=== PATIENT | male | born 1945 | race Caucasian/White ===

== ENCOUNTER 2022-04-04 05:00 | Outpatient (CLI) | payer OTHER, MEDICARE ==
[~2022-04-04] VITALS: Ht 185.4 cm; Wt 127.0 kg
[~2022-04-04 05:00] MED LIST: ASPI-1457 PO; LIP10 PO; LOSA1TAB3 PO
[2022-04-04 11:38] LABS: BASOPHILS % (AUTO) 0.4 % (0.0-2.0); EOSINOPHILS # (AUTO) 0.1 K/uL (0.0-0.4); EOSINOPHILS % (AUTO) 0.8 % (0.0-4.0); HEMATOCRIT 45.7 % (36-54); HEMOGLOBIN 15.7 g/dL (14.0-18.0); LYMPHOCYTES # (AUTO) 2.1 K/uL (1.0-5.5); LYMPHOCYTES % (AUTO) 28.5 % (20.5-51.5); MEAN CORPUSCULAR HEMOGLOBIN 33 pg (27-31); MEAN CORPUSCULAR HGB CONC 34 % (32-36); MEAN CORPUSCULAR VOLUME 96 fL (79.0-98.0); MONOCYTES # (AUTO) 0.9 K/uL (0.0-1.0); MONOCYTES % (AUTO) 12.4 % (1.7-9.3); NEUTROPHILS # (AUTO) 4.3 K/uL (1.8-7.7); NEUTROPHILS % (AUTO) 57.9 % (40.0-70.0); PLATELET COUNT (AUTO) 157 K/uL (130-430); RED BLOOD CELL COUNT(AUTO) 4.78 MIL/uL (4.2-6.2); RED CELL DISTRIBUTION WIDTH 13.4 % (9.0-15.0); WHITE BLOOD COUNT (AUTO) 7.4 K/uL (4.8-10.8)
[2022-04-04 11:43] LABS: BILIRUBIN,URINE NEGATIVE (NEGATIVE); BLOOD, URINE NEGATIVE (NEGATIVE); CLARITY/URINE CLEAR (CLEAR); COLOR,URINE YELLOW (YELLOW); GLUCOSE,URINE NEGATIVE (NEGATIVE); KETONES,URINE NEGATIVE (NEGATIVE); LEUKOCYTE ESTERASE ,URINE NEGATIVE (NEGATIVE); NITRITE, URINE NEGATIVE (NEGATIVE); PROTEIN URINE NEGATIVE (NEGATIVE); UROBILINOGEN,URINE 0.2 (0.2-1.0)
[2022-04-04 12:16] LABS: ANION GAP 8 (5-15); CALCIUM 9.7 mg/dL (8.4-11.0); CHLORIDE 100 mmol/L (98-107); GLUCOSE 134 mg/dL (70-99); UREA NITROGEN, BLOOD 21 mg/dL (8-21)
[2022-04-04 12:18] LABS: PROTHROMBIN TIME 10.2 SECS (9.5-12.5)
[2022-04-08] MEDS ORDERED: ASPI-1393 PO (05:32)
[2022-04-08] MEDS ORDERED: LOSA1TAB40 PO (05:32)
[2022-04-08] MEDS ORDERED: AMLO2.5T2 PO (05:32)
[2022-04-08] MEDS ORDERED: ROSU40TA PO (05:32)
== END 2022-04-04 16:00 | disposition home or self-care (01) ==
LOC: SLB 05:00 → UNDOADMIN 04-08 05:00 → SMU 04-08 05:00 → EDSTATUS 04-08 07:30
PROVIDERS: ATTEND Student in an Organized Health Care Education/Training Program
DX: Z01.812 Encounter for preprocedural laboratory examination (principal); M16.12 Unilateral primary osteoarthritis, left hip; Z20.822 Contact with and (suspected) exposure to COVID-19
CPT/HCPCS: 80048; 85025; 87081; 85730; 85610; 36415; 81003; U0003; Q9967

== ENCOUNTER 2022-06-10 04:55 | Inpatient (IN) | payer OTHER, MEDICARE ==
[2022-06-04 11:33] LABS: BILIRUBIN,URINE NEGATIVE (NEGATIVE); BLOOD, URINE NEGATIVE (NEGATIVE); CLARITY/URINE CLEAR (CLEAR); COLOR,URINE YELLOW (YELLOW); GLUCOSE,URINE NEGATIVE (NEGATIVE); KETONES,URINE NEGATIVE (NEGATIVE); LEUKOCYTE ESTERASE ,URINE NEGATIVE (NEGATIVE); NITRITE, URINE NEGATIVE (NEGATIVE); PH,URINE 6.5 (5.0-8.0); PROTEIN URINE TRACE (NEGATIVE); UROBILINOGEN,URINE 0.2 (0.2-1.0)
[2022-06-04 11:41] LABS: BASOPHILS % (AUTO) 0.6 % (0.0-2.0); EOSINOPHILS # (AUTO) 0.1 K/uL (0.0-0.4); EOSINOPHILS % (AUTO) 1.6 % (0.0-4.0); HEMATOCRIT 45.9 % (36-54); HEMOGLOBIN 15.7 g/dL (14.0-18.0); LYMPHOCYTES # (AUTO) 2.2 K/uL (1.0-5.5); LYMPHOCYTES % (AUTO) 27.6 % (20.5-51.5); MEAN CORPUSCULAR HEMOGLOBIN 33 pg (27-31); MEAN CORPUSCULAR HGB CONC 34 % (32-36); MEAN CORPUSCULAR VOLUME 95 fL (79.0-98.0); MONOCYTES # (AUTO) 0.9 K/uL (0.0-1.0); MONOCYTES % (AUTO) 11.4 % (1.7-9.3); NEUTROPHILS # (AUTO) 4.7 K/uL (1.8-7.7); NEUTROPHILS % (AUTO) 58.8 % (40.0-70.0); PLATELET COUNT (AUTO) 157 K/uL (130-430); RED BLOOD CELL COUNT(AUTO) 4.83 MIL/uL (4.2-6.2); RED CELL DISTRIBUTION WIDTH 13.2 % (9.0-15.0); WHITE BLOOD COUNT (AUTO) 7.9 K/uL (4.8-10.8)
[2022-06-04 11:48] LABS: ANION GAP 8 (5-15); CALCIUM 9.2 mg/dL (8.4-11.0); CHLORIDE 102 mmol/L (98-107); CREATININE 1.06 mg/dL (0.55-1.30); GLUCOSE 147 mg/dL (70-99); UREA NITROGEN, BLOOD 22 mg/dL (8-21)
[2022-06-04 11:54] LABS: PROTHROMBIN TIME 10.4 SECS (9.5-12.5)
[~2022-06-10] VITALS: Ht 185.4 cm; Wt 129.3 kg
[~2022-06-10 04:55] MED LIST changes: +AMLO2.5T2 PO; +ASPI-1393 PO; +LOSA1TAB40 PO; +ROSU40TA PO
[2022-06-10] MEDS ORDERED: CEFAZOLIN SOD 2 GM in D5W 50 ML IV ONE (07:00)
[2022-06-10] MEDS ORDERED: CEFAZOLIN 2 GM IVPB PREMIX 50 ML IV ONE (07:03)
[2022-06-10] MEDS ORDERED: ONDANSETRON HCL 4 MG/2 ML VIAL ONE (07:30)
[2022-06-10] MEDS ORDERED: MIDAZOLAM HCL 2 MG/2 ML VIAL (VERSED) ONE (07:30)
[2022-06-10] MEDS ORDERED: NS 1000 ML IV.SOLN IV ONE (07:30)
[2022-06-10] MEDS ORDERED: NS IRRIG SOLN 1000 ML IR ONE (07:30)
[2022-06-10] MEDS ORDERED: SUGAMMADEX SODIUM 200 MG/2 ML VIAL IV ONE (07:30)
[2022-06-10] MEDS ORDERED: BUPIVACAINE /PF 0.75% 10 ML VIAL INJ ONE (07:30)
[2022-06-10] MEDS ORDERED: VANCOMYCIN HCL 1000 MG/VIAL IV ONE (07:30)
[2022-06-10] MEDS ORDERED: BUPIVACAINE /PF 0.25% 30 ML VIAL INJ ONE (07:30)
[2022-06-10] MEDS ORDERED: PHENYLEPHRINE HCL 10 MG/ML VIAL (NEOSYNEPHRINE) ONE (07:30)
[2022-06-10] MEDS ORDERED: DEXAMETHASONE SOD PHOSPHATE 4 MG/ML VIAL ONE (07:30)
[2022-06-10] MEDS ORDERED: LIDOCAINE 1% 10 MG/ML, 20 ML MDV ONE (07:30)
[2022-06-10] MEDS ORDERED: MORPHINE SULFATE 10MG/10ML PF AMP ONE (07:30)
[2022-06-10] MEDS ORDERED: ROCURONIUM BROMIDE 10 MG/ML (ZEMURON) ONE (07:30)
[2022-06-10] MEDS ORDERED: BUPIVACAINE /EPINEPHRINE/PF 0.5% 30 ML VIAL INJ ONE (07:30)
[2022-06-10] MEDS ORDERED: DESFLURANE 15 MIN GAS INH ONE (07:30)
[2022-06-10] MEDS ORDERED: LR 1,000 ML IV.SOLN IV ONE (07:30)
[2022-06-10] MEDS ORDERED: TRANEXAMIC ACID 1,000 MG/10 ML VIAL ONE (07:30)
[2022-06-10] MEDS ORDERED: PROPOFOL 200MG/ 20ML VIAL (DIPRIVAN) IV ONE (07:30)
[2022-06-10] MEDS ORDERED: ePHEDrine sulfate 50 MG/ML VIAL ONE (07:30)
[2022-06-10] MEDS ORDERED: KETOROLAC TROMETHAMINE 30 MG VIAL ONE (07:30)
[2022-06-10] MEDS ORDERED: LIDOCAINE PF 2%, 40 MG/2 ML AMP INJ ONE (07:30)
[2022-06-10] MEDS ORDERED: HYDROmorphone 1 MG/ML INJ. CARTRIDGE IVP PRN ×5 (08:30→11:00)
[2022-06-10] MEDS ORDERED: LR 1,000 ML IV SCH (08:30)
[2022-06-10] MEDS ORDERED: METOCLOPRAMIDE HCL 10 MG/2 ML VIAL IVP PRN ×2 (08:30→12:00)
[2022-06-10] MEDS ORDERED: hydrALAZINE HCL 20 MG/ML VIAL IVP PRN (08:30)
[2022-06-10] MEDS ORDERED: MEPERIDINE HCL/PF 25 MG/ML DISP.SYRIN IVP PRN (08:30)
[2022-06-10] MEDS ORDERED: LABETALOL 100 MG/ 20ML VIAL IVP PRN (08:30)
[2022-06-10] MEDS ORDERED: ONDANSETRON HCL 4 MG/2 ML VIAL IVP PRN ×2 (08:45→11:45)
[2022-06-10] MEDS ORDERED: NALOXONE HCL 0.4 MG/ML AMP (NARCAN) IVP PRN ×4 (08:45→12:00)
[2022-06-10] MEDS ORDERED: DIPHENHYDRAMINE INJ 50 MG/ML VIAL IVP PRN (08:45)
[2022-06-10] MEDS ORDERED: ACETAMINOPHEN I.V. 1000 MG 100 ML IV ONE (08:50)
[2022-06-10] MEDS ORDERED: ROSU40TA PO (10:51)
[2022-06-10] MEDS ORDERED: LOSA1TAB43 PO (10:51)
[2022-06-10] MEDS ORDERED: AMLO2.5T2 PO (10:51)
[2022-06-10] MEDS ORDERED: ZEAX100P MC (10:51)
[2022-06-10] MEDS ORDERED: ASPI-1155 PO (10:51)
[2022-06-10] MEDS ORDERED: LORATADINE 10 MG TABLET PO PRN (11:00)
[2022-06-10] MEDS ORDERED: traMADol HCL HCL 50 MG TABLET (ULTRAM) PO PRN (11:00)
[2022-06-10] MEDS ORDERED: oxyCODONE HCL 5 MG TABLET PO PRN ×2 (11:00)
[2022-06-10] MEDS ORDERED: LACTULOSE 20 GM/30 ML UDC PO PRN (12:00)
[2022-06-10] MEDS ORDERED: BISACODYL 10 MG/SUPPOSITORY RC PRN (12:00)
[2022-06-10] MEDS ORDERED: DIPHENHYDRAMINE HCL 25 MG CAPSULE PO PRN (12:00)
[2022-06-10 12:46] VITALS: BP_SYST 116
[2022-06-10] MEDS: ACETAMINOPHEN 500 MG TABLET PO SCH ×2 (14:02→21:55)
[2022-06-10] MEDS: ceFAZolin SODIUM 2 GM in D5W 50 ML IV SCH ×2 (14:23→21:46)
[2022-06-10] MEDS: KETOROLAC TROMETHAMINE 10 MG TABLET (TORADOL) PO SCH ×2 (14:24→21:45)
[2022-06-10] MEDS: amLODIPine BESYLATE 5 MG TABLET PO SCH (15:56)
[2022-06-10] MEDS ORDERED: amLODIPine BESYLATE 5 MG TABLET PO ONE (16:00)
[2022-06-10] MEDS ORDERED: TAMSULOSIN HCL 0.4 MG CAP PO ONE (17:15)
[2022-06-10] MEDS: HYDROCHLOROTHIAZIDE 25 MG TABLET (HCTZ) PO SCH (17:37)
[2022-06-10] MEDS ORDERED: ATORVASTATIN 10 MG TABLET PO SCH (18:00)
[2022-06-10 20:05] VITALS: BP_SYST 118
[2022-06-10] MEDS: SENNOSIDES/DOCUSATE SODIUM 1 TAB TABLET(SENOKOT-S) PO SCH (21:47)
[2022-06-11 00:11] VITALS: BP_SYST 114
[2022-06-11] MEDS: ACETAMINOPHEN 500 MG TABLET PO SCH (05:18)
[2022-06-11] MEDS: KETOROLAC TROMETHAMINE 10 MG TABLET (TORADOL) PO SCH (05:19)
[2022-06-11] MEDS: ceFAZolin SODIUM 2 GM in D5W 50 ML IV SCH (05:20)
[2022-06-11] MEDS ORDERED: ACET-2634 PO ×2 (08:00→13:40)
[2022-06-11] MEDS ORDERED: CEPH250C PO (08:00)
[2022-06-11 08:14] VITALS: BP_SYST 126
[2022-06-11] MEDS: SENNOSIDES/DOCUSATE SODIUM 1 TAB TABLET(SENOKOT-S) PO SCH (08:25)
[2022-06-11] MEDS: amLODIPine BESYLATE 5 MG TABLET PO SCH (08:27)
[2022-06-11 08:34] LABS: HEMOGLOBIN 12.4 g/dL (14.0-18.0); LYMPHOCYTES # (AUTO) 1.9 K/uL (1.0-5.5); LYMPHOCYTES % (AUTO) 16.7 % (20.5-51.5); MEAN CORPUSCULAR HEMOGLOBIN 32 pg (27-31); MEAN CORPUSCULAR HGB CONC 33 % (32-36); MEAN CORPUSCULAR VOLUME 96 fL (79.0-98.0); MONOCYTES # (AUTO) 1.3 K/uL (0.0-1.0); MONOCYTES % (AUTO) 11.7 % (1.7-9.3); NEUTROPHILS # (AUTO) 8.3 K/uL (1.8-7.7); NEUTROPHILS % (AUTO) 71.6 % (40.0-70.0); PLATELET COUNT (AUTO) 147 K/uL (130-430); RED BLOOD CELL COUNT(AUTO) 3.85 MIL/uL (4.2-6.2); RED CELL DISTRIBUTION WIDTH 13.5 % (9.0-15.0); WHITE BLOOD COUNT (AUTO) 11.6 K/uL (4.8-10.8)
[2022-06-11 08:56] LABS: ALANINE AMINOTRANSFERASE 29 U/L (12-78); ALBUMIN 3.1 g/dL (3.4-4.8); ANION GAP 8 (5-15); ASPARTATE AMINOTRANSFERASE 34 U/L (10-37); CALCIUM 8.7 mg/dL (8.4-11.0); CHLORIDE 103 mmol/L (98-107); GLUCOSE 155 mg/dL (70-99); TOTAL BILIRUBIN 0.6 mg/dL (0.0-1.0); UREA NITROGEN, BLOOD 31 mg/dL (8-21)
[2022-06-11] MEDS ORDERED: LOSARTAN POTASSIUM 50 MG TABLET (COZAAR) PO SCH (09:00)
[2022-06-11] MEDS ORDERED: ATORVASTATIN 20 MG TABLET PO SCH (09:00)
[2022-06-11] MEDS ORDERED: DECADRON 4 MG TABLET PO SCH (09:00)
[2022-06-11] MEDS ORDERED: TAMSULOSIN HCL 0.4 MG CAP PO SCH ×2 (09:00→18:00)
[2022-06-11] MEDS ORDERED: ASPIRIN 81 MG TAB.CHEW PO SCH (09:00)
[2022-06-11] MEDS: HYDROCHLOROTHIAZIDE 25 MG TABLET (HCTZ) PO SCH (09:40)
[2022-06-11] MEDS ORDERED: TAMSULOSIN HCL 0.4 MG CAP PO ONE (10:45)
[2022-06-11] MEDS ORDERED: CELECOXIB 200 MG CAPSULE PO SCH (11:00)
[2022-06-11 11:33] VITALS: BP_SYST 116
[2022-06-11 13:12] VITALS: BP_SYST 116
[2022-06-11] MEDS ORDERED: ASA81 PO (14:17)
== END 2022-06-11 14:30 | disposition home health service (06) | DRG 470 ==
LOC: SMU 04:55
PROVIDERS: ADMIT Student in an Organized Health Care Education/Training Program; ATTEND Student in an Organized Health Care Education/Training Program
PROC: 0SRB0JA Replacement of Left Hip Joint with Synthetic Substitute, Uncemented, Open Approach (ICD-10-PCS; principal; 2022-06-10 07:41)
DX: M16.12 Unilateral primary osteoarthritis, left hip (principal); Z20.822 Contact with and (suspected) exposure to COVID-19
CPT/HCPCS: 36415; 71045; 72170-TC; 73501; 80048; 80053; 81003; 85025; 85610-TC; 85730-TC; 86886; 86900; 86901; 87081; 88304; 88311; 96379; 97110-GP; 97112-GP; 97116-GP; 97163-GP; 97530-GP; J0131; J0690; J1100; J1885; J2001; J2274; J2370; J2405; J2704; J3370; J3465; J3490; J7030; J7060; J7120; J8540; U0003

== ENCOUNTER 2023-11-12 10:49 | Outpatient (CLI) | payer OTHER, MEDICARE ==
[~2023-11-12 10:49] MED LIST changes: +ACET-2634 PO; +ASA81 PO; -ASPI-1393 PO; -ASPI-1457 PO; +CEPH250C PO; -LIP10 PO; -LOSA1TAB3 PO; +ZEAX100P MC
== END 2023-11-12 17:45 | disposition home or self-care (01) ==
LOC: SCT 10:49
PROVIDERS: ATTEND Student in an Organized Health Care Education/Training Program
DX: M16.11 Unilateral primary osteoarthritis, right hip (principal)

== ENCOUNTER 2023-12-01 07:32 | Day surgery (SDC) | payer OTHER, MEDICARE ==
[2023-11-27 16:46] LABS: BASOPHILS % (AUTO) 0.5 % (0.0-2.0); EOSINOPHILS # (AUTO) 0.4 K/uL (0.0-0.4); EOSINOPHILS % (AUTO) 4.4 % (0.0-4.0); HEMATOCRIT 43.9 % (36-54); HEMOGLOBIN 15.1 g/dL (14.0-18.0); LYMPHOCYTES # (AUTO) 2.6 K/uL (1.0-5.5); LYMPHOCYTES % (AUTO) 32.5 % (20.5-51.5); MEAN CORPUSCULAR HEMOGLOBIN 33 pg (27-31); MEAN CORPUSCULAR HGB CONC 34 % (32-36); MEAN CORPUSCULAR VOLUME 98 fL (79.0-98.0); MONOCYTES % (AUTO) 12.6 % (1.7-9.3); NEUTROPHILS # (AUTO) 4.1 K/uL (1.8-7.7); PLATELET COUNT (AUTO) 176 K/uL (130-430); RED CELL DISTRIBUTION WIDTH 13.9 % (9.0-15.0); WHITE BLOOD COUNT (AUTO) 8.1 K/uL (4.8-10.8)
[2023-11-27 17:02] LABS: INR 1.1 (0.80-1.20)
[2023-11-27 17:05] LABS: ALANINE AMINOTRANSFERASE 22 U/L (12-78); ALBUMIN 3.7 g/dL (3.4-4.8); ANION GAP 8 (5-15); ASPARTATE AMINOTRANSFERASE 19 U/L (10-37); CALCIUM 9.3 mg/dL (8.4-11.0); CARBON DIOXIDE 30 mmol/L (23-29); CHLORIDE 104 mmol/L (98-107); CREATININE 1.44 mg/dL (0.55-1.30); GLUCOSE 89 mg/dL (74-106); SODIUM SERUM 142 mmol/L (136-145); TOTAL BILIRUBIN 1.3 mg/dL (0.0-1.0); TOTAL PROTEIN, SERUM 7.1 g/dL (6.4-8.3); UREA NITROGEN, BLOOD 20 mg/dL (8-21)
[~2023-12-01] VITALS: Ht 185.4 cm; Wt 131.5 kg
[~2023-12-01 07:32] MED LIST changes: +CEFAZOLIN SOD 2 GM in D5W 50 ML IV ONE; +CELECOXIB 100 MG CAPSULE PO ONE; +GABAPENTIN 300 MG CAPSULE PO ONE; +SCOPOLAMINE HYDROBROMIDE 1 MG PATCH .72 H (TRANSDERM-SCOP) TD ONE; +oxyCODONE HCL 10 MG TAB.ER.12H PO ONE
[2023-12-01] MEDS ORDERED: ACETAMINOPHEN 500 MG TABLET ONE (08:07)
[2023-12-01] MEDS ORDERED: oxyCODONE HCL 10 MG TAB.ER.12H PO ONE (08:14)
[2023-12-01] MEDS: ACETAMINOPHEN 500 MG TABLET PO PRN (08:50)
[2023-12-01] MEDS: CELECOXIB 100 MG CAPSULE ONE (08:50)
[2023-12-01] MEDS: SCOPOLAMINE HYDROBROMIDE 1 MG PATCH .72 H (TRANSDERM-SCOP) TD ONE (08:50)
[2023-12-01] MEDS: GABAPENTIN 300 MG CAPSULE ONE (08:50)
[2023-12-01] MEDS ORDERED: LACTULOSE 20 GM/30 ML UDC PO PRN (10:00)
[2023-12-01] MEDS ORDERED: BISACODYL 10 MG/SUPPOSITORY RC PRN (10:00)
[2023-12-01] MEDS ORDERED: METOCLOPRAMIDE HCL 10 MG/2 ML VIAL IVP PRN (10:00)
[2023-12-01] MEDS ORDERED: DIPHENHYDRAMINE HCL 25 MG CAPSULE PO PRN (10:00)
[2023-12-01] MEDS: oxyCODONE HCL 10 MG TAB.ER.12H PO ONE (10:00)
[2023-12-01] MEDS ORDERED: ceFAZolin SODIUM 1 GM VIAL ONE (10:05)
[2023-12-01] MEDS ORDERED: oxyCODONE HCL 5 MG TABLET PO PRN ×2 (11:00)
[2023-12-01] MEDS ORDERED: traMADol HCL HCL 50 MG TABLET (ULTRAM) PO PRN (11:00)
[2023-12-01] MEDS ORDERED: LORATADINE 10 MG TABLET PO PRN (11:00)
[2023-12-01] MEDS ORDERED: HYDROmorphone 1 MG/ML INJ. CARTRIDGE IVP PRN ×5 (11:00→11:15)
[2023-12-01] MEDS ORDERED: hydrALAZINE HCL 20 MG/ML VIAL IVP PRN (11:15)
[2023-12-01] MEDS ORDERED: LR 1,000 ML IV SCH (11:15)
[2023-12-01] MEDS ORDERED: MEPERIDINE HCL/PF 25 MG/ML DISP.SYRIN IVP PRN (11:15)
[2023-12-01] MEDS ORDERED: LABETALOL 100 MG/ 20ML VIAL IVP PRN (11:15)
[2023-12-01] MEDS ORDERED: ONDANSETRON HCL 4 MG/2 ML VIAL IVP PRN ×2 (11:15→11:45)
[2023-12-01] MEDS ORDERED: ceFAZolin SODIUM 2 GM in D5W 50 ML IV SCH (11:15)
[2023-12-01 11:59] VITALS: PULSE 68; RESP 16; TEMP 97.8; O2SAT 96
[2023-12-01] MEDS ORDERED: TAMSULOSIN HCL 0.4 MG CAP PO ONE ×2 (12:15→17:00)
[2023-12-01 13:43] VITALS: BP_SYST 114
[2023-12-01] MEDS ORDERED: ACETAMINOPHEN 500 MG TABLET PO SCH (14:00)
[2023-12-01] MEDS ORDERED: KETOROLAC TROMETHAMINE 10 MG TABLET (TORADOL) PO SCH (14:00)
[2023-12-01] MEDS ORDERED: SENNOSIDES/DOCUSATE SODIUM 1 TAB TABLET(SENOKOT-S) PO SCH (21:00)
[2023-12-02] MEDS ORDERED: TAMSULOSIN HCL 0.4 MG CAP PO SCH (09:00)
[2023-12-02] MEDS ORDERED: ASPIRIN 81 MG TAB.CHEW PO SCH (09:00)
[2023-12-02] MEDS ORDERED: CELECOXIB 200 MG CAPSULE PO SCH (11:00)
== END 2023-12-01 19:30 | disposition home or self-care (01) ==
LOC: SMU 07:32 → SDS 07:32
PROVIDERS: ATTEND Student in an Organized Health Care Education/Training Program
DX: M16.11 Unilateral primary osteoarthritis, right hip (principal); I10 Essential (primary) hypertension; E78.5 Hyperlipidemia, unspecified; E66.01 Morbid (severe) obesity due to excess calories; Z68.38 Body mass index [BMI] 38.0-38.9, adult; Z96.642 Presence of left artificial hip joint; Z90.3 Acquired absence of stomach [part of]; Z98.890 Other specified postprocedural states; Z79.82 Long term (current) use of aspirin; Z79.899 Other long term (current) drug therapy
CPT/HCPCS: 80053; 85025; 85610; 85730; 87081; 36415; 71046; 27130; 97162; 73501; 97110; 97530; 97116; 82948; 88304; 88311; 72170; J3490 ×2; J0690; J0696; J1100; J3465; J2405; J2704; J3370; J3010; J7060 ×2; A4649; C1776 ×4; C1713 ×2